=== PATIENT | female | born 1980 | race Caucasian/White ===

== ENCOUNTER 2024-01-03 08:26 | Day surgery (SDC) | payer OTHER, SELFPAY ==
--- NOTE | 2023-12-31 11:46 | HO.ANESPROP2 ---
Documented by User: Chiquita Washington NP 12/31/23 11:46 HPI - Anesthesia Eval Consult details Narrative: 43yo F for Colonoscopy [facility] Past Medical History Medical History Anxiety Celiac disease Surgical History Surgical History History of esophagogastroduodenoscopy (EGD) Social History Social History Patient Tobacco Use Status: Never used Tobacco Second Hand Smoke Exposure: No Use of substances other than those prescribed or required for medical reasons: No Are you DNR?: No Advance Directives: No Advance Directives Information Provided: Yes Advance Directives on File: No Meds Allergies Allergy/AdvReac Type Severity Reaction Status Date / Time No Known Allergies Allergy Unverified 05/16/20 17:31 Home Medications ?Medication ?Instructions ?Recorded ?Confirmed ?Last Taken ?Type multivitamin 1 tab PO DAILY 12/31/23 12/31/23 Unknown History sertraline 25 mg tablet 12.5 mg PO DAILY 12/31/23 12/31/23 Unknown History Assessment and Plan Assessment Anesthesia Assessment: Chart Reviewed Documented by User: Sweetie Tolbert MD 01/03/24 09:23 [facility] Past Medical History Medical History Anxiety Celiac disease Surgical History Surgical History History of esophagogastroduodenoscopy (EGD) History of Problems with Anesthesia: No Social History Social History Patient Tobacco Use Status: Never used Tobacco Second Hand Smoke Exposure: No Use of substances other than those prescribed or required for medical reasons: No Are you DNR?: No Advance Directives: No Advance Directives Information Provided: Yes Advance Directives on File: No Meds Allergies Allergy/AdvReac Type Severity Reaction Status Date / Time No Known Allergies Allergy Unverified 05/16/20 17:31 Home Medications ?Medication ?Instructions ?Recorded ?Confirmed ?Last Taken ?Type multivitamin 1 tab PO DAILY 12/31/23 12/31/23 Unknown History sertraline 25 mg tablet 12.5 mg PO DAILY 12/31/23 12/31/23 Unknown History Exam Airway Mallampati Class: II TM Dist: >3cm Neck ROM: Full Loose/Missing/Broken Teeth: No Heart: RRR Lungs: CTA Assessment and Plan Assessment Anesthesia Assessment: Anesthesia Plan Discussed Final Anesthetic Review History of Problems with Anesthesia: No NPO: Yes ASA Class: II Final Preanesthetic Review: Meds/Allgs Chart Reviewed, Consent Obtained/Reviewed and Anes Risks/Benef Reviewed Patient Risk: Low Procedure Risk: Low Anesthetic Plan Anesthetic Plan: MAC: Disposition: Standard PACU
[2024-01-03 08:48] VITALS: BMI 24.8
[2024-01-03 09:01] VITALS: BP 101/65; PULSE 68; RESP 16; TEMP 36.4; O2SAT 98
[2024-01-03] MEDS: Lactated Ringers 1,000 ML 100 ML IVCONT (09:02)
[2024-01-03 09:13] LABS: Urine Pregnancy NEGATIVE (NEGATIVE)
[2024-01-03 09:14] LABS: UPreg QC Valid YES
[2024-01-03 10:30] VITALS: BP 73/32; PULSE 69; RESP 16; TEMP 36.4; O2SAT 98
--- NOTE | 2024-01-03 10:30 | PM.OP ---
Brief Operative Note Date of Service: 01/03/24 Pre-op diagnosis: Screening Post-op diagnosis: other (Normal colonoscopy) Procedure: Colonoscopy to the cecum and TI Surgeon: Fernando Sky MD Anesthesia: MAC Was an [employer] used for this Procedure?: No Estimated blood loss (mL): 0 Pathology: none sent Condition: stable Disposition: PACU
[2024-01-03 10:35] VITALS: BP 88/47; PULSE 65; RESP 16; O2SAT 98
[2024-01-03 10:45] VITALS: BP 93/58; PULSE 62; RESP 16; O2SAT 98
--- NOTE | 2024-01-03 10:55 | OP_ITS ---
DATE OF SERVICE: 01/03/2024 SURGEON: Fernando Sky MD INDICATIONS: The patient presents for evaluation of colorectal cancer screening. Full consent has been obtained from her for this, including risks of bleeding and perforation. PREOPERATIVE DIAGNOSIS: Colorectal cancer screening. POSTOPERATIVE DIAGNOSIS: PROCEDURE PERFORMED: Colonoscopy to the cecum and terminal ileum. ESTIMATED BLOOD LOSS: COMPLICATIONS: ANESTHESIA: Monitored anesthesia care. ASSISTANTS: SPECIMENS: POSTOPERATIVE DIAGNOSES: Colorectal cancer screening, normal colonoscopy. DESCRIPTION OF PROCEDURE: The patient was placed in the left lateral decubitus position. The digital rectal exam revealed no abnormalities. The Olympus video pediatric colonoscope was then entered into the rectum and advanced easily to the cecum. Once in the cecum, I did identify normal-appearing cecal pouch with appendiceal orifice and a normal-appearing ileocecal valve. The terminal ileum was cannulated and appeared normal. The scope was withdrawn back in the colon. The entire cecum and ileocecal valve appeared normal. The scope was slowly withdrawn, assessing all mucosal surfaces carefully. Preparation was excellent. I did not visualize any sign of polyps, colitis, nor angiodysplasia. In the rectum, scope was retroflexed, visualizing normal rectal mucosa and no pathology. The scope was straightened and withdrawn from the patient. She tolerated the procedure well and was returned to the recovery area in stable condition. IMPRESSION: Normal colonoscopy. PLAN: Given the negative exam and no family history of colorectal cancer, I would recommend a followup coloscopy in 10 years for further screening. She will, otherwise, see me on a p.r.n. basis. Fernando Sky MD RMW/MODL / [id number]
[2024-01-03 11:00] VITALS: BP 96/63; PULSE 62; RESP 16; TEMP 36.4; O2SAT 100
== END 2024-01-03 11:49 | disposition home or self-care (01) ==
PROVIDERS: Nurse Practitioner; PCP Physician Assistant; Visit Provider Internal Medicine
PROC: 0DJD8ZZ Inspection of Lower Intestinal Tract, Via Natural or Artificial Opening Endoscopic (ICD-10-PCS; CPT 45378; principal; 2024-01-03 09:30)
DX: Z12.11 Encounter for screening for malignant neoplasm of colon (principal); Z83.719 Family history of colon polyps, unspecified
CPT/HCPCS: 45378; 81025; J2371; J2704